=== PATIENT | female | born 1945 | race Caucasian/White ===

== ENCOUNTER 2018-08-16 11:35 | Emergency (ER) | payer MEDICARE, OTHER ==
[~2018-08-16] VITALS: Ht 154.9 cm; Wt 74.5 kg
[~2018-08-16 11:35] MED LIST: BACK1EAC10
[2018-08-16 12:13] LABS: BASOPHILS # (AUTO) 0.1 X10'3 (0-0.2); BASOPHILS % (AUTO) 1.7 % (0-1); EOSINOPHILS # (AUTO) 0.1 X10'3 (0-0.9); HEMATOCRIT 41.3 % (35.0-45.0); HEMOGLOBIN 13.8 g/dl (12.0-16.0); LYMPHOCYTES # (AUTO) 1.3 X10'3 (1.1-4.8); MEAN CORPUSCULAR HEMOGLOBIN 29.5 PG (27.0-31.0); MEAN CORPUSCULAR HGB CONC 33.5 g/dL (33.0-36.5); MEAN CORPUSCULAR VOLUME 88.1 FL (78-98); MEAN PLATELET VOLUME 8.4 FL (7.4-10.4); MONOCYTES # (AUTO) 0.4 X10'3 (0-0.9); MONOCYTES % (AUTO) 4.9 % (2-12); NEUTROPHILS # (AUTO) 5.9 X10'3 (1.8-7.7); NEUTROPHILS % (AUTO) 75.4 % (42-75); PLATELET COUNT 296 X10'3 (140-440); RED BLOOD COUNT 4.69 X10'6 (4.20-5.60); RED CELL DISTRIBUTION WIDTH 16.4 % (11.5-14.5); WHITE BLOOD COUNT 7.9 X10'3 (4.5-11.0)
[2018-08-16 12:28] LABS: ALANINE AMINOTRANSFERASE 24 U/L (12-78); ALBUMIN 3.7 G/DL (3.4-5.0); ALBUMIN/GLOBULIN RATIO 0.9 (1.1-1.5); ALKALINE PHOSPHATASE 65 IU/L (46-116); ANION GAP 13 (8-16); ASPARTATE AMINO TRANSFERASE 20 U/L (10-37); BILIRUBIN,TOTAL 0.5 MG/DL (0.1-1.0); BLOOD UREA NITROGEN 28 MG/DL (7-18); BUN/CREATININE RATIO 24.1 (6.6-38.0); CALCIUM 9.7 MG/DL (8.5-10.1); CHLORIDE 100 MMOL/L (99-107); CREATININE 1.16 MG/DL (0.40-0.90); GLUCOSE 110 MG/DL (70-104); POTASSIUM 3.3 MMOL/L (3.5-5.1); SODIUM 140 MMOL/L (135-145); TOTAL CARBON DIOXIDE 26.8 MMOL/L (24-32); TOTAL PROTEIN 7.7 G/DL (6.4-8.2); eGFR 46 ML/MIN
[2018-08-16 12:50] LABS: PARTIAL THROMBOPLASTIN TIME 24 SECONDS (22-32); PROTHROMBIN TIME 9.8 SECONDS (9.0-12.0)
--- NOTE | 2018-08-16 12:55 | NUR ---
Spoke with Dr. Dean, may hold off from starting IV start till further notice.
[2018-08-16] MEDS ORDERED: meclizine 12.5mg tablet PO ONE (13:15)
[2018-08-16] MEDS ORDERED: ondansetron 4mg rapidly disintigrating tab PO ONE (13:15)
[2018-08-16] MEDS ORDERED: MECL12.584 PO (14:26)
[2018-08-16] MEDS ORDERED: ONDA8TAB6 PO (14:26)
[2018-08-16 14:41] VITALS: BP 145/79
== END 2018-08-16 14:44 | disposition home or self-care (01) ==
LOC: ER 11:35
DX: S40.011A Contusion of right shoulder, initial encounter (principal); H81.10 Benign paroxysmal vertigo, unspecified ear; Z90.710 Acquired absence of both cervix and uterus; Z79.899 Other long term (current) drug therapy; Z88.6 Allergy status to analgesic agent; Z88.8 Allergy status to other drugs, medicaments and biological substances; Z88.5 Allergy status to narcotic agent; W01.198A Fall on same level from slipping, tripping and stumbling with subsequent striking against other object, initial encounter; Y93.89 Activity, other specified; Y92.89 Other specified places as the place of occurrence of the external cause; Y99.9 Unspecified external cause status
CPT/HCPCS: 36415; 71045; 80053; 84484; 85025; 85610; 85730; 93005; 99284; J8597

== ENCOUNTER 2021-11-24 20:15 | Emergency (ER) | payer MEDICARE, OTHER ==
[~2021-11-24] VITALS: Ht 154.9 cm; Wt 72.7 kg
[~2021-11-24 20:15] MED LIST changes: +MECL-226 PO; +ONDA8TAB6 PO
[2021-11-24 20:43] VITALS: BP 157/77
[2021-11-24] MEDS ORDERED: acetaminophen 325mg tablet PO ONE (21:50)
== END 2021-11-24 22:27 | disposition home or self-care (01) ==
LOC: ER 20:15
DX: M13.861 Other specified arthritis, right knee (principal); G89.29 Other chronic pain; M54.9 Dorsalgia, unspecified; E07.9 Disorder of thyroid, unspecified; Z88.8 Allergy status to other drugs, medicaments and biological substances; Z88.5 Allergy status to narcotic agent; Z79.899 Other long term (current) drug therapy
CPT/HCPCS: 73564; 99283

== ENCOUNTER 2021-12-22 08:49 | Outpatient (CLI) | payer MEDICARE, OTHER ==
[~2021-12-22] VITALS: Ht 154.9 cm; Wt 72.6 kg
[2021-12-22] MEDS ORDERED: nitroGLYCERIN 0.4mg SUBLingual tab SL PRN (09:55)
[2021-12-22] MEDS ORDERED: normal saline 500ml IV soln 500 ML IV ONE (09:55)
[2021-12-22] MEDS ORDERED: metoprolol tartrate 1mg/ml inj IV PRN (09:55)
[2021-12-22] MEDS ORDERED: atropine 0.1mg/ml 10ml syringe IV PRN (09:55)
[2021-12-22] MEDS ORDERED: regadenoson 0.4mg/5ml syringe IV ONE (09:55)
[2021-12-22] MEDS ORDERED: aminophylline 500mg/20ml vial IV PRN (09:55)
[2021-12-22 10:13] VITALS: BP 171/62
[2021-12-22 10:27] VITALS: BP 161/62
[2021-12-22 10:28] VITALS: BP 147/88
[2021-12-22 10:29] VITALS: BP 144/70
[2021-12-22 10:30] VITALS: BP 149/61
[2021-12-22 10:31] VITALS: BP 152/67
== END 2021-12-22 23:59 | disposition home or self-care (01) ==
LOC: RAD 08:49
PROVIDERS: ATTEND Internal Medicine Cardiovascular Disease
DX: I34.0 Nonrheumatic mitral (valve) insufficiency (principal); I51.7 Cardiomegaly; R42 Dizziness and giddiness; R94.31 Abnormal electrocardiogram [ECG] [EKG]
CPT/HCPCS: 78452; 93017; 93306; A9500; J0280; J2785; J7040

== ENCOUNTER 2024-04-13 13:50 | Outpatient (CLI) | payer MEDICARE, OTHER | END 2024-04-13 23:59 | disposition home or self-care (01) | LOC: RAD 13:50 | PROVIDERS: ATTEND Family Medicine | DX: M79.604 Pain in right leg (principal); M79.605 Pain in left leg | CPT/HCPCS: 73590 ==

== ENCOUNTER 2024-05-24 09:44 | Outpatient (CLI) | payer MEDICARE, OTHER | END 2024-05-24 23:59 | disposition home or self-care (01) | LOC: RAD 09:44 | PROVIDERS: ATTEND Family Medicine | DX: M79.604 Pain in right leg (principal); M79.605 Pain in left leg | CPT/HCPCS: 73590 ==

== ENCOUNTER 2024-08-15 12:12 | Outpatient (CLI) | payer MEDICARE, OTHER | END 2024-08-15 23:59 | disposition home or self-care (01) | LOC: RAD 12:12 | DX: Z01.810 Encounter for preprocedural cardiovascular examination (principal); R32 Unspecified urinary incontinence; Z87.448 Personal history of other diseases of urinary system | CPT/HCPCS: 93005 ==